=== PATIENT | female | born 1990 | race Hispanic/Latino ===

== ENCOUNTER 2017-12-14 10:09 | Emergency (ER) | payer BC ==
[~2017-12-14] VITALS: Ht 149.9 cm; Wt 68.0 kg
[2017-12-14 13:12] VITALS: BP 136/77
[2017-12-14] MEDS ORDERED: KETOROLAC TROMETHAMINE 60 MG/2 ML VIAL IM ONE (13:30)
== END 2017-12-14 13:29 | disposition home or self-care (01) ==
LOC: FSED 10:09
DX: R10.31 Right lower quadrant pain (principal); K59.00 Constipation, unspecified; R11.2 Nausea with vomiting, unspecified; R03.0 Elevated blood-pressure reading, without diagnosis of hypertension; Z72.0 Tobacco use
CPT/HCPCS: 76830; 76856; 80307; 81003; 81025; 87086; 99283; J1885